=== PATIENT | female | born 1950 | race Caucasian/White ===

== ENCOUNTER 2021-11-05 11:23 | Outpatient (CLI) | payer OTHER, MEDICAID | END 2021-11-05 11:24 | disposition home or self-care (01) | LOC: PET 11:23 | PROVIDERS: ATTEND Otolaryngology Otolaryngic Allergy | DX: C77.0 Secondary and unspecified malignant neoplasm of lymph nodes of head, face and neck (principal) | CPT/HCPCS: 78815; A9552 ==